=== PATIENT | male | born 1980 | race African-American/Black ===

== ENCOUNTER 2020-01-06 18:07 | Emergency (ER) | payer MEDICAID, OTHER ==
[~2020-01-06] VITALS: Ht 183.5 cm; Wt 113.4 kg
[~2020-01-06 18:07] MED LIST: AZITHROMYCIN250 MG ORAL; CYCLOBENZAPRINE10 MG ORAL; IBUPROFEN600 MG ORAL; IBUPROFEN800 MG ORAL; MEDROL DOSEPAK4 MG ORAL; NORCO 5-325 TA1 EACH ORAL; PROMETHAZINE-C118 M1 ORAL
--- NOTE | 2020-01-06 18:07 | NUR ---
ED Nurse Note: X ray done
--- NOTE | 2020-01-06 18:07 | NUR ---
ED Nurse Note: Patient ambulated in to ER c/o CP, stated has SOB sometimes. Per patient he did work out and thinks it might be a muscle spasm. Patient AAO x4, VSS at this time.
[2020-01-06 18:08] VITALS: BP 157/95
--- NOTE | 2020-01-06 18:10 | NUR ---
ED Nurse Note: EKG was done
--- NOTE | 2020-01-06 18:29 | Emergency Room Report ---
History of Present Illness General Chief Complaint: Upper Respiratory Illness Source: Patient (Jia Dorsey) Present Illness HPI 39-year-old male with no significant past medical history was sent here by primary doctor as patient reported shortness of breath. Patient reports that 2 days ago he was doing push-ups at home mid chest pain with shortness of breath. Denies any diarrhea, fever and chills, loss of taste and smell. Denies any cough or congestion. Speaking full sentences, does not use any accessory muscles for breathing. Denies tobacco smoke, marijuana use, alcohol intake. Denies all other comorbidities. Denies coming contact with a call with positive patient. O2 sat and temperature within normal limits. Patient appears to be slightly tachycardic upon arrival. Denies any cardiac history. Denies palpitation. (Jia Dorsey) Allergies: Coded Allergies: BEE POLLEN (Unverified Allergy, Unknown, 06/27/14) PSEUDOEPHEDRINE (Unverified Allergy, Unknown, 01/06/20) COVID-19 Screening Contact w/high risk pt: No Recent Travel to affected area: No Experienced COVID-19 symptoms?: No COVID-19 Testing performed BUSINESS LEADER: No (Jia Dorsey) Patient History Past Medical History: see triage record Past Surgical History: none Pertinent Family History: none Immunizations: UTD Reviewed Nursing Documentation: PMH: Agreed; PSxH: Agreed (Jia Dorsey) Nursing Documentation-PMH Past Medical History: No Stated History (Jia Dorsey) Review of Systems All Other Systems: negative except mentioned in HPI (Jia Dorsey) Physical Exam Vital Signs Date Time Temp Pulse Resp B/P (MAP) Pulse Ox O2 Delivery O2 Flow Rate FiO2 01/06/20 17:43 98.4 110 18 157/95 (115) 95 Room Air Sp02 EP Interpretation: reviewed, abnormal - Slightly tachycardic General Appearance: no apparent distress, alert, GCS 15, non-toxic Head: normocephalic, atraumatic Eyes: bilateral eye normal inspection, bilateral eye PERRL ENT: hearing grossly normal, normal pharynx, no angioedema, normal voice Neck: full range of motion, supple/symm/no masses Respiratory: chest non-tender, lungs clear, normal breath sounds, no rhonchi, no wheezing, speaking full sentences Cardiovascular #1: regular rate, rhythm, no edema, no murmur Gastrointestinal: normal bowel sounds, non tender, soft, non-distended, no guarding, no rebound Genitourinary: no CVA tenderness Musculoskeletal: back normal, no calf tenderness Neurologic: alert, motor strength/tone normal, oriented x3, sensory intact, responsive, speech normal Psychiatric: judgement/insight normal, memory normal, mood/affect normal, no suicidal/homicidal ideation Skin: no rash Lymphatic: no adenopathy (Jia Dorsey) Medical Decision Making PA Attestation All diagnoses and treatment plans were reviewed and discussed with my supervising physician Dr. Hernandes (Jia Dorsey) Diagnostic Impression: Primary Impression: Chest pain, unspecified Additional Impression: SOB (shortness of breath) ER Course 39-year-old male with no significant past medical history was sent here by primary doctor as patient reported shortness of breath. Patient reports that 2 days ago he was doing push-ups at home mid chest pain with shortness of breath. Denies any diarrhea, fever and chills, loss of taste and smell. Denies any cough or congestion. Speaking full sentences, does not use any accessory muscles for breathing. Denies tobacco smoke, marijuana use, alcohol intake. Denies all other comorbidities. Denies coming contact with a call with positive patient. O2 sat and temperature within normal limits. Patient appears to be slightly tachycardic upon arrival. Denies any cardiac history. Denies palpitation. Ddx considered but are not limited to: NC, Angina, COPD, GERD, coronavirus Vital signs: are WNL, pt. is afebrile H&PE are most consistent with unspecified chest pain most likely secondary to chest wall, S OB ORDERS: EKG, Chest XR, I consulted with my supervising physician Dr. Hernandes and he was stabilized and no cardiac No further evaluation needed patient sitting comfortably with stable vital signs. Motrin, albuterol ED INTERVENTIONS: None required at this time. DISCHARGE: At this time pt. is stable for d/c to home. Will provide printed patient care instructions, and any necessary prescriptions. Care plan and follow up instructions have been discussed with the patient prior to discharge. Gave patient contact information to [facility] across the street for covert testing. Patient cellulitis of leg. Worsening symptom return to the emergency room. (Jia Dorsey) EKG Diagnostic Results Rate: tachycardiac Rhythm: other - Slightly tachycardic ST Segments: no acute changes Other Impression No acute ST changes (Jia Dorsey) Chest X-Ray Diagnostic Results Chest X-Ray Diagnostic Results : Chest X-Ray Ordered: Yes # of Views/Limited/Complete: 1 View Indication: Chest Pain EP Interpretation: Yes PA Xray: Interpretation reviewed, by supervising MD, and agrees with findings. Interpretation: no consolidation, no effusion, no pneumothorax Impression: No acute disease Electronically Signed by: Jia Laughlin PA-C (Jia Dorsey) Chest X-Ray Diagnostic Results : Electronically Signed by: Will Skinner documentation of Xray reviewed by me and is accurate, Tramaine Hernandes MD (Tramaine Hernandes MD) Last Vital Signs Date Time Temp Pulse Resp B/P (MAP) Pulse Ox O2 Delivery O2 Flow Rate FiO2 01/06/20 18:08 110 18 Room Air 01/06/20 18:08 98.4 157/95 95 (Jia Dorsey) Disposition: HOME, SELF-CARE Condition: Stable Scripts Ibuprofen* (MOTRIN*) 600 Mg Tablet 600 MG ORAL Q6H PRN for For Pain, #30 TAB 0 Refills Prov: Jia Dorsey 01/06/20 Albuterol Sulfate (VENTOLIN HFA) 18 Gm Hfa.aer.ad 2 PUFFS INH EVERY 6 HOURS, #18 GM 0 Refills Prov: Jia Dorsey 01/06/20 Patient Instructions: Chest Wall Pain, [id number], Shortness of Breath, Easy- to-Read Additional Instructions: Take medication as directed, follow-up with primary care provider, increase oral hydration, if worsening symptoms return to emergency room Jia Dorsey Jan 06, 2020 18:29 Tramaine Hernandes MD Jan 07, 2020 03:40
[2020-01-06] MEDS ORDERED: IBUPROFEN600 M1 ORAL (18:30)
[2020-01-06] MEDS ORDERED: VENTOLIN HFA18 GM INH (18:30)
[2020-01-06 18:40] VITALS: BP 157/95
--- NOTE | 2020-01-06 18:54 | NUR ---
ED Nurse Note: Pt cleared by health care Provider for discharge. DC instructions/prescription was given and explained to pt and verbalized understanding of teachings. All medical deviecs such as ID band removed. Pt is AAO x4, ambulatory and left with all personal belongings.
--- NOTE | 2020-01-07 08:36 | Diagnostic Imaging Report ---
Indication: Shortness of breath Technique: One view of the chest Comparison: none Findings: Lungs and pleural spaces are clear. Heart size is normal. Impression: No acute process
== END 2020-01-06 18:50 | disposition home or self-care (01) ==
LOC: EDBD 18:07 → EMR 18:50
DX: R06.02 Shortness of breath (principal); R07.9 Chest pain, unspecified; R00.0 Tachycardia, unspecified; Z88.8 Allergy status to other drugs, medicaments and biological substances
CPT/HCPCS: 71045; 93005; 99283